=== PATIENT | male | born 1980 | race Caucasian/White ===

== ENCOUNTER 2018-07-15 01:49 | Emergency (ER) | payer OTHER ==
[2018-07-15 01:54] VITALS: TEMP 98.2
[2018-07-15] MEDS ORDERED: KETOROLAC 30 MG/ML 1 ML VIAL IVP STA (02:16)
[2018-07-15] MEDS ORDERED: ONDANSETRON 4 MG/2 ML VIAL IVP STA (02:16)
[2018-07-15] MEDS ORDERED: SODIUM CHLORIDE 0.9% 1,000 ML IV STA (02:16)
[2018-07-15 02:38] LABS: Basophils # (A) 0.1 k/uL (0-0.2); Basophils % (A) 1 %; Eosinophils # (A) 0.2 k/uL (0-0.7); Eosinophils % (A) 3 %; HCT 47.2 % (39.0-53.0); HGB 16.2 gm/dL (13.0-17.5); Lymphocytes # (A) 3.3 k/uL (1.0-4.8); Lymphocytes % (A) 37 %; MCH 30.9 pg (25.0-35.0); MCHC 34.4 g/dL (31.0-37.0); MCV 89.8 fL (80.0-100.0); Mean Platelet Volume 7.3; Monocytes # (A) 0.6 k/uL (0-1.0); Monocytes % (A) 7 %; Neutrophils # (A) 4.5 k/uL (1.3-7.7); Neutrophils % (A) 50 %; Platelet Count 339 k/uL (150-450); RBC 5.26 m/uL (4.30-5.90)
[2018-07-15 02:53] LABS: ALT 43 U/L (21-72); AST 25 U/L (17-59); Albumin 4.3 g/dL (3.5-5.0); Alkaline Phosphatase 123 U/L (38-126); Amylase 78 U/L (30-110); Anion Gap 10 mmol/L; Blood Urea Nitrogen 18 mg/dL (9-20); Calcium 9.2 mg/dL (8.4-10.2); Carbon Dioxide 28 mmol/L (22-30); Chloride 103 mmol/L (98-107); Glucose 104 mg/dL (74-99); Lipase 220 U/L (23-300); Potassium 3.8 mmol/L (3.5-5.1); Sodium 141 mmol/L (137-145); Total Bilirubin 0.5 mg/dL (0.2-1.3); Total Protein 7.2 g/dL (6.3-8.2)
[2018-07-15 02:59] VITALS: BP 140/80; PULSE 68; RESP 18
--- NOTE | 2018-07-15 03:07 | CT ---
EXAMINATION TYPE: CT abdomen pelvis wo con DATE OF EXAM: 07/15/2018 COMPARISON: None HISTORY: Lt flank pain CT DLP: 458.50 mGycm Automated exposure control for dose reduction was used. TECHNIQUE: Helical acquisition of images was performed from the lung bases through the pelvis. FINDINGS: Lung bases are clear of consolidation. There is minimal subsegmental atelectasis. There is no pleural effusion. There is no pericardial effusion. Heart size is normal. Liver spleen pancreas appear normal. Bile ducts are not dilated. Gallbladder appears normal. There is no adrenal mass. Kidneys have normal size and contour. There is no hydronephrosis. Ureters a re not dilated. There is no retroperitoneal adenopathy. Appendix appears normal. Bladder distends smo othly. There is no evidence of a pelvic mass. Lumbar spine is intact. There is no ascites. There is n o sign of free air. IMPRESSION: NEGATIVE CT SCAN OF THE ABDOMEN AND PELVIS. MINIMAL SUBSEGMENTAL ATELECTASIS AT THE LUNG BASES. I SEE NO CAUSE FOR LEFT SIDE FLANK PAIN.
[2018-07-15 03:15] LABS: Amorphous Sediment,Urine Rare /hpf; Appearance,Urine Cloudy (Clear); Bilirubin,Urine Negative (Negative); Blood,Urine Negative (Negative); Color,Urine Yellow; Glucose,Urine (UA) Negative (Negative); Ketones,Urine Negative (Negative); Leukocyte Esterase,Urine Negative (Negative); Nitrite,Urine Negative (Negative); PH, Urine 6.5 (5.0-8.0); Protein,Urine Negative (Negative); RBC,Urine <1 /hpf (0-5); Specific Gravity,Urine 1.013 (1.001-1.035); Urobilinogen,Urine <2.0 mg/dL (<2.0)
--- NOTE | 2018-07-15 03:33 | ED ---
General Adult HPI - General Chief complaint: Abdominal Pain Stated complaint: ABD PAIN Time Seen by Provider: 07/15/18 01:58 Source: patient, RN notes reviewed Mode of arrival: ambulatory Limitations: no limitations - History of Present Illness Initial comments: 37-year-old male presents to the emergency department for a chief complaint of left side and abdominal pain for 2 hours. Patient states he had just finished eating [employer] and drinking a red bull when he started to have left-sided pain radiating to the abdomen and down into the left testicle. Patient denies any pain in the testicle at this time. Patient describes the pain in his side and abdomen as a sharp pain. Patient denies any nausea or vomiting. Patient denies any history of kidney stones or any other past abdominal history. Patient does admit to chronic lumbar spine pain but denies any injuries to the lumbar spine. Patient denies noticing any blood in the urine. Patient denies any dysuria or urinary frequency. Patient denies any fevers or chills at home. Patient states last bowel movement was yesterday and was of normal consistency. Patient has no other complaints at this time including shortness of breath, chest pain, nausea or vomiting, headache, or visual changes. - Related Data Home Medications Medication Instructions Recorded Confirmed No Known Home Medications 07/15/18 07/15/18 Allergies Allergy/AdvReac Type Severity Reaction Status Date / Time No Known Allergies Allergy Verified 07/15/18 01:54 Review of Systems ROS Statement: Those systems with pertinent positive or pertinent negative responses have been documented in the HPI. ROS Other: All systems not noted in ROS Statement are negative. Past Medical History Past Medical History: No Reported History History of Any Multi-Drug Resistant Organisms: None Reported Past Surgical History: No Surgical Hx Reported Past Psychological History: No Psychological Hx Reported Smoking Status: Current every day smoker Past Alcohol Use History: Occasional Past Drug Use History: None Reported General Exam Limitations: no limitations General appearance: alert, in no apparent distress Head exam: Present: atraumatic, normocephalic, normal inspection Eye exam: Present: normal appearance. Absent: scleral icterus, conjunctival injection ENT exam: Present: normal exam, mucous membranes moist Neck exam: Present: normal inspection, full ROM. Absent: tenderness, meningismus, lymphadenopathy Respiratory exam: Present: normal lung sounds bilaterally. Absent: respiratory distress, wheezes, rales, rhonchi, stridor Cardiovascular Exam: Present: regular rate, normal rhythm, normal heart sounds. Absent: systolic murmur, diastolic murmur, rubs, gallop, clicks GI/Abdominal exam: Present: soft, normal bowel sounds. Absent: distended, tenderness (Patient does not have any tenderness to the abdomen whatsoever including with deep palpation), guarding, rebound, rigid exam: Present: normal inspection. Absent: testicular tenderness, urethral discharge, scrotal swelling, vertical testicular lie Back exam: Present: CVA tenderness (L) (Minimal left CVA tenderness). Absent: CVA tenderness (R), vertebral tenderness Neurological exam: Present: alert, oriented X3, CN II-XII intact Psychiatric exam: Present: normal affect, normal mood Course Vital Signs 07/15/18 07/15/18 01:51 02:55 Temperature 98.2 F Pulse Rate 70 68 Respiratory 20 18 Rate Blood Pressure 153/97 140/80 O2 Sat by Pulse 98 98 Oximetry Medical Decision Making - Medical Decision Making 37-year-old male presents to the emergency department for a chief complaint of left side and abdominal pain. Patient states the pain did radiate into his left testicle at home but that has since resolved. Patient denies any urethral discharge or concern for STDs. Patient describes the pain in the abdomen and the left side as a sharp pain. On exam no abdominal tenderness whatsoever. Very minimal left CVA tenderness. Dr. Mcmillan did visualize the left testicle which was a normal exam. No evidence of testicular torsion. CBC and CMP unremarkable. Amylase and lipase within normal limits. Urine shows no signs of infection or blood. Negative computed tomography scan of the abdomen and pelvis. On reexamination patient states pain is completely resolved. He is feeling completely better. He states he feels embarrassed that he came in. I did discuss with patient that this could have been spasm of the colon as patient had just eaten. Patient will follow with primary care. He will return to the emergency department if he has any worsening symptoms, additional pain, or pain in the left testicle. - Lab Data Result diagrams: 07/15/18 02:09 07/15/18 02:09 Lab Results 07/15/18 07/15/18 07/15/18 Range/Units 02:09 02:09 02:54 WBC 9.0 (3.8-10.6) k/uL RBC 5.26 (4.30-5.90) m/uL Hgb 16.2 (13.0-17.5) gm/dL Hct 47.2 (39.0-53.0) % MCV 89.8 (80.0-100.0) fL MCH 30.9 (25.0-35.0) pg MCHC 34.4 (31.0-37.0) g/dL RDW 13.0 (11.5-15.5) % Plt Count 339 (150-450) k/uL Neutrophils % 50 % Lymphocytes % 37 % Monocytes % 7 % Eosinophils % 3 % Basophils % 1 % Neutrophils # 4.5 (1.3-7.7) k/uL Lymphocytes # 3.3 (1.0-4.8) k/uL Monocytes # 0.6 (0-1.0) k/uL Eosinophils # 0.2 (0-0.7) k/uL Basophils # 0.1 (0-0.2) k/uL Sodium 141 (137-145) mmol/L Potassium 3.8 (3.5-5.1) mmol/L Chloride 103 (98-107) mmol/L Carbon Dioxide 28 (22-30) mmol/L Anion Gap 10 mmol/L BUN 18 (9-20) mg/dL Creatinine 1.00 (0.66-1.25) mg/dL Est GFR (CKD-EPI)AfAm >90 (>60 ml/min/1.73 sqM) Est GFR (CKD-EPI)NonAf >90 (>60 ml/min/1.73 sqM) Glucose 104 H (74-99) mg/dL Calcium 9.2 (8.4-10.2) mg/dL Total Bilirubin 0.5 (0.2-1.3) mg/dL AST 25 (17-59) U/L ALT 43 (21-72) U/L Alkaline Phosphatase 123 (38-126) U/L Total Protein 7.2 (6.3-8.2) g/dL Albumin 4.3 (3.5-5.0) g/dL Amylase 78 (30-110) U/L Lipase 220 (23-300) U/L Urine Color Yellow Urine Appearance Cloudy (Clear) Urine pH 6.5 (5.0-8.0) Ur Specific [place] 1.013 (1.001-1.035) Urine Protein Negative (Negative) Urine Glucose (UA) Negative (Negative) Urine Ketones Negative (Negative) Urine Blood Negative (Negative) Urine Nitrite Negative (Negative) Urine Bilirubin Negative (Negative) Urine Urobilinogen <2.0 (<2.0) mg/dL Ur Leukocyte Esterase Negative (Negative) Urine RBC <1 (0-5) /hpf Amorphous Sediment Rare H (None) /hpf Disposition Clinical Impression: Spasm of colon, Abdominal pain Disposition: HOME SELF-CARE Condition: Good Instructions: Abdominal Pain (ED) Additional Instructions: Please take Motrin and Tylenol for pain. Please follow-up with primary care in 1-2 days. Return to the emergency department if you have any worsening pain or any other worsening symptoms. Is patient prescribed a controlled substance at d/c from ED?: No Referrals: Estrada Cortez DO [STAFF PHYSICIAN] - 1-2 days Time of Disposition: 03:32
== END 2018-07-15 03:39 | disposition home or self-care (01) ==
LOC: EC 01:49
DX: K58.9 Irritable bowel syndrome, unspecified (principal); F17.200 Nicotine dependence, unspecified, uncomplicated
CPT/HCPCS: 36415; 80053; 82150; 83690; 85025; 81001; 74176; 99284; 96374; 96375; 96361; J2405; J1885

== ENCOUNTER 2020-04-28 16:34 | Emergency (ER) | payer BC, OTHER ==
[2020-04-28 17:17] LABS: Appearance,Urine Clear (Clear); Bilirubin,Urine Negative (Negative); Blood,Urine Negative (Negative); Color,Urine Colorless; Glucose,Urine (UA) Negative (Negative); Ketones,Urine Negative (Negative); Leukocyte Esterase,Urine Negative (Negative); Nitrite,Urine Negative (Negative); PH, Urine 5.5 (5.0-8.0); Protein,Urine Negative (Negative); Specific Gravity,Urine 1.002 (1.001-1.035); Urobilinogen,Urine <2.0 mg/dL (<2.0)
[2020-04-28 17:30] LABS: Amphetamine Screen,Urine Not Detected (NotDetected); Barbiturate Screen,Urine Not Detected (NotDetected); Benzodiazepines Screen,Urine Not Detected (NotDetected); Cocaine Screen,Urine Not Detected (NotDetected); Methadone Screen, Urine Not Detected (NotDetected); Opiate Screen,Urine Not Detected (NotDetected); Oxycodone Screen, Urine Not Detected (NotDetected); Phencyclidine Screen,Urine Not Detected (NotDetected); Tricyclic Antidepressant,Urine Not Detected (NotDetected); Urn Cannabinoid Scrn Not Detected (NotDetected)
--- NOTE | 2020-04-28 17:30 | ED ---
Psych HPI - General Chief Complaint: Psychiatric Symptoms Stated Complaint: Mental Health Time Seen by Provider: 04/28/20 16:57 Source: patient Mode of arrival: ambulatory - History of Present Illness Initial Comments: 39-year-old male with history of depression, PTSD, general and thyroid disorder, chronic pain and history of alcohol abuse presenting today for chief complaint of depression with fleeting suicidal ideation. Patient states she has chronic had on-and-off suicidal ideation patient states that he has had increasing fleeting ideas today he has no plan. He states that he feels silly now coming to the ER because he does not feel he would commit suicide he states he wants to stay alive for his sons. Patient states she has had increased depression especially today because everything seems to be going wrong he denies any specific other aggravating factors. Patient states that he did start Chantix 1.5 months ago and states that he is not sure if this is related. Patient denies suicidal ideation. Patient has no additional complaints today. Remaining ROS (- ), patient denies any recent fever, chills, shortness of breath, chest pain, back pain, abdominal pain, nausea or vomiting, numbness or tingling, dysuria or hematuria, constipation or diarrhea, headaches or visual changes, or any other complaints. - Related Data Home Medications Medication Instructions Recorded Confirmed Cyclobenzaprine [Flexeril] 10 mg PO Q8H PRN 04/28/20 04/28/20 EPINEPHrine (Auto Inject) [Epipen] 0.3 mg INJ DIRECTED PRN 04/28/20 04/28/20 Fish Oil (Unknown Strength) 1 tab PO DAILY 04/28/20 04/28/20 Multivitamins, Thera [Multivitamin 1 tab PO DAILY 04/28/20 04/28/20 (formulary)] Turmeric (Unknown Strength) 1 tab PO DAILY 04/28/20 04/28/20 Varenicline [Chantix Continuing 1 mg PO BID 04/28/20 04/28/20 Pack] Allergies Allergy/AdvReac Type Severity Reaction Status Date / Time NSAIDS (Non-Steroidal Allergy Rash/Hives Verified 04/28/20 19:26 Anti-Inflamma Review of Systems ROS Statement: Those systems with pertinent positive or pertinent negative responses have been documented in the HPI. ROS Other: All systems not noted in ROS Statement are negative. Past Medical History Past Medical History: No Reported History History of Any Multi-Drug Resistant Organisms: None Reported Past Surgical History: No Surgical Hx Reported Past Psychological History: Depression, PTSD Smoking Status: Current every day smoker Past Alcohol Use History: Occasional Past Drug Use History: None Reported General Exam - General Exam Comments Initial Comments: General: The patient is awake and alert, in no distress Eye: +3 mm pupils are equal, round and reactive to light, extra-ocular movements are intact. No nystagmus. There is normal conjunctiva bilaterally. No signs of icterus. Ears, nose, mouth and throat: There are moist mucous membranes and no oral lesions. Neck: The neck is supple, there is no tenderness or JVD. Cardiovascular: There is a regular rate and rhythm. No murmur, rub or gallop is appreciated. Respiratory: Lungs are clear to auscultation, respirations are non-labored, breath sounds are equal. No wheezes, stridor, rales, or rhonchi. Gastrointestinal: Soft, non-distended, non-tender abdomen without masses or organomegaly noted. There is no rebound or guarding present. Musculoskeletal: Normal ROM, no tenderness. Strength 5/5. Sensation intact. R adial pulses equal bilaterally 2+. Neurological: A&O x 3. CN II-XII intact grossly, There are no obvious motor or sensory deficits. Coordination appears grossly intact. Speech is normal. Skin: Skin is warm and dry and no rashes or lesions are noted. Psychiatric: Cooperative, rapid speech Limitations: no limitations Course Vital Signs 04/28/20 16:50 Temperature 98.2 F Pulse Rate 121 H Respiratory 18 Rate Blood Pressure 115/66 O2 Sat by Pulse 98 Oximetry - Reevaluation(s) Reevaluation #1: Evaluated patient he is under the influence of alcohol will be evaluated by EPS when patient sober. 04/28/20 17:30 Medical Decision Making - Medical Decision Making 39-year-old male presenting for increasing depression. Upon arrival he denies any suicidal ideation he states he has fleeting thoughts. He states that he feels he just drank too much. Patient is accompanied by his friend. Patient remained in ER until sober. Patient evaluated by EPS who recommended discharge after speaking with psychiatrist. Attending provider agreeable to psychiatric services decision, patient is agreeable appears of sound mind, capable of making decisions. Discharged appearing well. - Lab Data Lab Results 04/28/20 Range/Units 17:07 Urine Color Colorless Urine Appearance Clear (Clear) Urine pH 5.5 (5.0-8.0) Ur Specific [place] 1.002 (1.001-1.035) Urine Protein Negative (Negative) Urine Glucose (UA) Negative (Negative) Urine Ketones Negative (Negative) Urine Blood Negative (Negative) Urine Nitrite Negative (Negative) Urine Bilirubin Negative (Negative) Urine Urobilinogen <2.0 (<2.0) mg/dL Ur Leukocyte Esterase Negative (Negative) Urine Opiates Screen Not Detected (NotDetected) Ur Oxycodone Screen Not Detected (NotDetected) Urine Methadone Screen Not Detected (NotDetected) Ur Propoxyphene Screen Not Detected (NotDetected) Ur Barbiturates Screen Not Detected (NotDetected) U Tricyclic Antidepress Not Detected (NotDetected) Ur Phencyclidine Scrn Not Detected (NotDetected) Ur Amphetamines Screen Not Detected (NotDetected) U Methamphetamines Scrn Not Detected (NotDetected) U Benzodiazepines Scrn Not Detected (NotDetected) Urine Cocaine Screen Not Detected (NotDetected) U Marijuana (THC) Screen Not Detected (NotDetected) Disposition Clinical Impression: Depression Disposition: HOME SELF-CARE Condition: Good Instructions (If sedation given, give patient instructions): Depression (ED), Suicide Prevention (ED) Additional Instructions: Please use medication as discussed. Please follow-up with family doctor in the next 2 days, follow safety plan and return for any suicidal ideations. Please discontinue the chantix. Please return to emergency room if the symptoms increase or worsen or for any other concerns. Is patient prescribed a controlled substance at d/c from ED?: No Referrals: Taylor Braxton MD [Primary Care Provider] - 1-2 days Time of Disposition: 21:12
[2020-04-28 21:44] VITALS: BP 124/72; PULSE 91; RESP 16; TEMP 98.6
== END 2020-04-28 21:43 | disposition home or self-care (01) ==
LOC: EC 16:34
DX: F32.9 Major depressive disorder, single episode, unspecified (principal); F17.200 Nicotine dependence, unspecified, uncomplicated; Z88.6 Allergy status to analgesic agent; Z79.899 Other long term (current) drug therapy
CPT/HCPCS: 80306; 81003; 82075; 99285

== ENCOUNTER → 2023-12-28 | Outpatient (CLI) | payer OTHER ==
--- NOTE | 2024-01-01 16:19 | P.PCN ---
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 The patient has a Mallampati class IV and the patient a recent weight gain of around 20 to 30 pounds over the past 5 years. His blood pressure has been under poor control and the patient is currently taking 2 antihypertensive medications. He has history of PTSD from his service in the and the patient is currently on Zoloft. A home sleep study was ordered to rule out the possibility of obstructive sleep apnea Pertinent physical findings The patient has a weight of 194 pounds with a height of 5 feet and 8 inches Technical description The Loopster apnea link system was used to complete this type III home sleep study. The total recording duration was 6 hours and 58 minutes. The recording started at 2:25 AM and it ended at 9:25 AM. This was an adequate study as the patient had more than 6 hours of flow and oxygen saturation monitoring Results The respiratory analysis showed a total of 0 obstructive apneas and 31 obstructive hypopneas and the resulting AHI was 4.6. Obstructive respiratory hypopneas occurred essentially in the supine body position. Oxygenation analysis No significant oxygen desaturation were encountered and the patient was able to maintain a pulse ox above 88% throughout the sleep study. Average pulse ox during sleep was 94%. Baseline pulse ox was 97%. Cardiac summary Average heart rate was 83 with a minimum heart rate of 66 and a maximum heart rate of 110 Assessment Primary snoring without evidence of any significant sleep breathing disorder. The patient had an AHI of 4.6. Note that the patient's respiratory events were essentially in the form of obstructive hypopneas occurring in a supine body position. No significant nocturnal oxygen desaturations Plan No need for CPAP therapy. The patient has positional obstructive hypopneas and I would advise him to sleep on his side. The patient will be asked also to lose weight as the patient has gained around 20 to 30 pounds over the past 5 years. Maintain regular sleep schedule and good sleep hygiene measures. Contact me back should there be any worsening in his sleep quality. For now, will continue our conservative measures of losing weight and maintaining good sleep hygiene measures.
== END ==
LOC: 3 N SLEEP 13:16
PROVIDERS: ATTEND Internal Medicine Critical Care Medicine
DX: G47.33 Obstructive sleep apnea (adult) (pediatric) (principal); R06.83 Snoring; G47.10 Hypersomnia, unspecified; F43.10 Post-traumatic stress disorder, unspecified; F17.200 Nicotine dependence, unspecified, uncomplicated; Z88.8 Allergy status to other drugs, medicaments and biological substances